=== PATIENT | female | born 1965 | race Caucasian/White ===

== ENCOUNTER → 2024-07-13 14:32 | Outpatient (REF) | payer OTHER, SELFPAY | LOC: HWRAD 14:32 | PROVIDERS: ATTENDING PHYSICIAN Nurse Practitioner Adult Health; FAMILY PHYSICIAN Internal Medicine | DX: M54.16 Radiculopathy, lumbar region (principal) | CPT/HCPCS: 72131 ==

== ENCOUNTER → 2025-05-26 12:21 | Outpatient (REF) | payer OTHER, SELFPAY | LOC: HWWDC 12:21 | PROVIDERS: ATTENDING PHYSICIAN Internal Medicine | DX: Z12.31 Encounter for screening mammogram for malignant neoplasm of breast (principal) | CPT/HCPCS: 77063; 77067 ==